=== PATIENT | female | born 1960 | race Caucasian/White ===

== ENCOUNTER 2016-11-23 01:22 | Emergency (ER) | payer BC ==
[2016-11-23] MEDS ORDERED: Famotidine IV* 10 MG/ML 2 ML (20 mg) IV SLOW PU ONE (01:25)
[2016-11-23] MEDS ORDERED: methylPREDNISolone 125 MG* 2 ML VIAL IV ONE (01:25)
[2016-11-23] MEDS ORDERED: NS 0.9% 1000 ML* 1,000 ML IV ONE (01:25)
--- NOTE | 2016-11-23 01:37 | ED ---
Sathya Rivas Benjamin, scribed for Renny Abarca MD on 11/23/16 at 0136 . Allergic Reaction/Systemic - HPI Summary HPI Summary: 56yo female BIBA for allergic reaction this evening around 6pm. Started developing redness, itchiness, tingling/swelling in hand, mild dyspnea, and burning in lips. Pt also noted her throat swelling en route. Pt took 50mg of Benadryl at home and was given 0.3 epi en route. Pt had shellfish for dinner but doesnt have known allergy to it. Slightly allergic to wheat and dairy but denies ingestion tonight. - History of Current Complaint Chief Complaint: EDAllergicReaction Time Seen by Provider: 11/23/16 01:24 Hx Obtained From: Patient Onset/Duration: Sudden Onset, Started hours ago Timing: Constant Severity Initially: Mild Severity Currently: Mild Pain Intensity: 0 Location: Diffuse Character: Swelling Aggravating Factor(s): Nothing Alleviating Factor(s): Nothing Associated Signs And Symptoms: Positive: Difficulty Breathing, Throat Tightening - Allergies/Home Medications Allergies/Adverse Reactions: Allergies Allergy/AdvReac Type Severity Reaction Status Date / Time DAIRY Allergy Hives Uncoded 11/23/16 02:21 WHEAT Allergy Hives Uncoded 11/23/16 02:21 PMH/Surg Hx/FS Hx/Imm Hx Endocrine/Hematology History: Denies: Hx Diabetes Cardiovascular History: Denies: Hx Hypertension, Hx Pacemaker/ICD Respiratory History: Denies: Hx Asthma History: Denies: Hx Renal Disease Musculoskeletal History: Denies: Hx Osteoporosis Sensory History: Reports: Hx Contacts or Glasses - GLASSES Denies: Hx Hearing Aid Opthamlomology History: Reports: Hx Contacts or Glasses - GLASSES Psychiatric History: Denies: Hx Panic Disorder - Cancer History Hx Chemotherapy: No Hx Radiation Therapy: No - Surgical History Surgery Procedure, Year, and Place: LEFT WRIST - GANGLION CYST;. BILAT VARICOSE [place] OCTOBER AND DECEMBER 2015; Hx Anesthesia Reactions: No Infectious Disease History: No Infectious Disease History: Denies: Traveled Outside the [place] in Last 30 Days - Social History Alcohol Use: Occasionally Substance Use Type: Reports: None Smoking Status (MU): Never Smoked Tobacco Review of Systems Constitutional: Negative Eyes: Negative Positive: Other - throat tightening; burning sensations in lips Cardiovascular: Negative Respiratory: Negative Gastrointestinal: Negative Genitourinary: Negative Musculoskeletal: Negative Positive: Rash, Other - redness in skin; itchiness Neurological: Other - tingling and burning sensations in hands Psychological: Normal All Other Systems Reviewed And Are Negative: Yes Physical Exam Triage Information Reviewed: Yes Vital Signs On Initial Exam: Initial Vitals Temp Pulse Resp BP Pulse Ox 99.0 F 81 18 119/83 96 11/23/16 01:23 11/23/16 01:23 11/23/16 01:23 11/23/16 01:11/23/16 01:23 Vital Signs Reviewed: Yes Appearance: Positive: Well-Appearing, No Pain Distress Skin: Positive: Warm, Other - patchy maculae erythematous rash Head/Face: Positive: Normal Head/Face Inspection Eyes: Positive: CARSON ENT: Positive: Hearing grossly normal Neck: Positive: Supple Respiratory/Lung Sounds: Positive: Clear to Auscultation, Breath Sounds Present Cardiovascular: Positive: RRR Abdomen Description: Positive: Nontender, Soft Bowel Sounds: Positive: Present Musculoskeletal: Positive: Strength/ROM Intact Neurological: Positive: Alert, Oriented to Person Place, Time Psychiatric: Positive: Affect/Mood Appropriate Diagnostics - Vital Signs Vital Signs Temp Pulse Resp BP Pulse Ox 11/23/16 01:23 99.0 F 81 18 119/83 96 - Laboratory Lab Statement: Any lab studies that have been ordered have been reviewed, and results considered in the medical decision making process. Re-Evaluation - Re-Evaluation First Eval Change: Improved Allergic Reaction Course/Dx - Diagnoses Provider Diagnoses: Allergic reaction Discharge - Discharge Plan Condition: Stable Disposition: HOME Prescriptions: diPHENhydraMINE PO* [Benadryl PO 25 MG TAB*] 25 mg PO Q6H #20 tab predniSONE TAB* [Deltasone TAB*] 40 mg PO DAILY #8 tab Patient Education Materials: General Allergic Reaction (ED) Referrals: Andree Horowitz NP [Primary Care Provider] - Gracie Brown MD [Medical Doctor] - The documentation as recorded by the Sathya north Benjamin accurately reflects the service I personally performed and the decisions made by me, Renny Abarca MD.
[2016-11-23 02:38] VITALS: BP 115/71
== END 2016-11-23 02:40 | disposition home or self-care (01) ==
LOC: ED 01:22
DX: T78.40XA Allergy, unspecified, initial encounter (principal); X58.XXXA Exposure to other specified factors, initial encounter; R21 Rash and other nonspecific skin eruption
CPT/HCPCS: 96374; 96375; 99283; J2930

== ENCOUNTER 2018-02-22 10:47 | Day surgery (SDC) | payer BC ==
[~2018-02-22 10:47] MED LIST: Acetaminophen TAB* 325 MG PO PRN; Buffered Lidocaine 0.9% SYRIN* 5 ML/SYR SYRINGE INTRADERM ONE; Naloxone* 0.4 MG/ML 1 ML VIAL IV PRN; Ondansetron INJ* 2 MG/ML VIAL IV PRN; fentaNYL* 50 MCG/ML 2 ML VIAL (100 MCG VIAL) IV PRN; oxyCODONE/Acetamin 5/325 MG* TAB PO PRN
[2018-02-22] MEDS ORDERED: fentaNYL* 50 MCG/ML 2 ML VIAL (100 MCG VIAL) ONE (13:12)
[2018-02-22] MEDS ORDERED: Dexamethasone IV* 4 MG/ML 1 ML (4 MG) ONE (13:12)
[2018-02-22] MEDS ORDERED: Propofol* 10 MG/ML 20 ML BTL IV PUSH ONE (13:12)
[2018-02-22] MEDS ORDERED: Lidocaine 2% PF * 5 ML VIAL ONE (13:12)
[2018-02-22] MEDS ORDERED: Ondansetron INJ* 2 MG/ML VIAL ONE (13:12)
[2018-02-22] MEDS ORDERED: Midazolam* 1 MG/ML 5 ML VIAL (5 MG) ONE (13:12)
[2018-02-22] MEDS ORDERED: ROPIVACAINE 5 MG/ML 30 ML BTL (0.5%) ONE (13:27)
--- NOTE | 2018-02-22 14:02 | OP ---
Operative Report - Blank - Operative Report Date of Operation: 02/22/18 Note: DATE OF OPERATION: 02/22/18 - [facility] DATE OF : 1960 SURGEON: Keny Dumont MD HIGH SCALER: MICHELLE Morton ANESTHESIOLOGIST: Dr. Mcclain. ANESTHESIA: Local MAC. PRE-OP DIAGNOSIS: Left carpal tunnel syndrome. POST-OP DIAGNOSIS: Left carpal tunnel syndrome. OPERATIVE PROCEDURE: Left open carpal tunnel release. INDICATIONS: Heaven has progressive left carpal tunnel syndrome. We talked about risks and benefits. She wanted to proceed. ESTIMATED BLOOD LOSS: 2 mL. COMPLICATIONS: None. FINDINGS: As expected. DESCRIPTION OF PROCEDURE: Heaven was seen in the preoperative holding area. The correct side, site and the procedure were identified. We came back to the operating room. I anesthetized the operative area with 0.25% plain Marcaine. The arm was prepped and draped in usual fashion. The arm was exsanguinated with the Esmarch and the tourniquet was inflated to 250 mmHg. I made a 2 to 3 cm longitudinal incision in the standard location for an open carpal tunnel release. Dissection was carried down through the subcutaneous tissue and palmar fascia. Transverse carpal ligament was released off the radial aspect of the hook of the hamate. The release was completed distally and proximally I released the fascia and subcutaneous tissue and retracted this volarly and ulnarly and then under direct visualization I released the remainder of the transverse carpal ligament and distal antebrachial fascia to level several centimeters proximal to the wrist flexion crease. The release at this point was complete. Everything was looking good with absolutely no compression on the nerve. I irrigated out the wound. Skin was closed with 4-0 nylon suture. Wounds were dressed appropriately and he was taken to recovery room in stable condition.
[2018-02-22 14:28] VITALS: BP 102/56
== END 2018-02-22 14:37 | disposition home or self-care (01) ==
LOC: OREAST 10:47
PROVIDERS: ATTEND Orthopaedic Surgery Hand Surgery
DX: G56.02 Carpal tunnel syndrome, left upper limb (principal); E66.01 Morbid (severe) obesity due to excess calories; F41.8 Other specified anxiety disorders; M25.50 Pain in unspecified joint
CPT/HCPCS: J1100; J2250; J2405; J2704; J2795; J3010

== ENCOUNTER 2018-06-18 10:09 | Day surgery (SDC) | payer BC ==
[~2018-06-18 10:09] MED LIST changes: -Acetaminophen TAB* 325 MG PO PRN; +Dexamethasone TAB* 4 MG PO ONE; +DiMENhydriNATE IV* 50 MG/ML VIAL IV PUSH PRN; +Famotidine IV* 10 MG/ML 2 ML (20 mg) IV ONE; +Lactated Ringers 1000 ML Bag* 1,000 ML IV SCH; +Morphine VIAL* 4 MG/ML VIAL (1 ml vial) IV PRN; -Ondansetron INJ* 2 MG/ML VIAL IV PRN; +Ondansetron INJ* 2 MG/ML VIAL ONE; +PROCHLORPERAZINE INJ 5 MG/ML 2 ML VIAL IV PRN; -fentaNYL* 50 MCG/ML 2 ML VIAL (100 MCG VIAL) IV PRN
[2018-06-18] MEDS ORDERED: Midazolam* 1 MG/ML 5 ML VIAL (5 MG) ONE (12:24)
[2018-06-18] MEDS ORDERED: KETAMINE HCL* 50 MG/ML 10 ML VIAL ONE (12:24)
[2018-06-18] MEDS ORDERED: fentaNYL* 50 MCG/ML 2 ML VIAL (100 MCG VIAL) ONE ×3 (12:24→16:13)
[2018-06-18] MEDS ORDERED: Ondansetron ODT TAB* 4 MG ONE (12:40)
[2018-06-18] MEDS ORDERED: Famotidine IV* 10 MG/ML 2 ML (20 mg) ONE (12:40)
[2018-06-18] MEDS ORDERED: Dexamethasone TAB* 4 MG ONE (12:40)
[2018-06-18] MEDS ORDERED: ceFAZolin 2 GM PREMIX in ORs 2 GM/50 ML BAG IVPB ONE (12:41)
[2018-06-18] MEDS ORDERED: Bupivacaine 0.25% SDV PF* 10 ML VIAL INJ ONE (13:49)
[2018-06-18] MEDS ORDERED: Atracurium* 10 MG/ML 10 ML VIAL ONE (14:14)
[2018-06-18] MEDS ORDERED: Glycopyrrolate IV* 0.2 MG/ML 1 ML VIAL ONE ×2 (14:30→14:46)
[2018-06-18] MEDS ORDERED: Propofol* 10 MG/ML 20 ML BTL ONE (14:46)
[2018-06-18] MEDS ORDERED: Ketorolac INJ* 30 MG/ML 1 ML VIAL ONE (14:46)
[2018-06-18] MEDS ORDERED: Lidocaine 2% PF * 5 ML VIAL ONE (14:46)
[2018-06-18] MEDS ORDERED: Lidocaine 2% PF* 10 ML AMP ONE (14:46)
[2018-06-18] MEDS ORDERED: EPHEDrine (Pressors)* 50 MG/ML VIAL ONE (14:47)
[2018-06-18] MEDS: fentaNYL* 50 MCG/ML 2 ML VIAL (100 MCG VIAL) IV PRN ×2 (16:14→16:18)
[2018-06-18] MEDS ORDERED: HYDROcodone/ACETAMIN 5-325 MG* 1 TAB ONE (16:28)
[2018-06-18 17:36] VITALS: BP 125/83
--- NOTE | 2018-06-19 02:39 | OP ---
DATE OF OPERATION: 06/18/18 - [facility] DATE OF : 62 SURGEON: Dr. Keny Dumont. PRINTING AGENT: MICHELLE Morton, and Andree Bryson, surgical resident. ANESTHESIOLOGIST: Dr. Hollins. ANESTHESIA: General. PRE-OP DIAGNOSES: 1. Right thumb carpometacarpal stage III osteoarthritis. 2. Right thumb metacarpophalangeal joint hyperextension laxity. 3. Right carpal tunnel syndrome. POST-OP DIAGNOSES: 1. Right thumb carpometacarpal stage III osteoarthritis. 2. Right thumb metacarpophalangeal joint hyperextension laxity. 3. Right carpal tunnel syndrome. OPERATIVE PROCEDURE: 1. Right thumb carpometacarpal arthroplasty with trapeziectomy. 2. Right distally based split flexor carpi radialis tendon transfer for thumb suspension and tendon interposition. 3. Right thumb metacarpophalangeal joint volar capsulodesis with volar plate advancement. 4. Right carpal tunnel release. INDICATIONS: Heaven is a 57-year-old. She has significant problems with the hand, but the worse is the thumb base coupled with carpal tunnel syndrome. She has a quite bit of MCP joint hyperextension, over 60 degrees. We had talked about her treatment options. She had wanted to proceed with surgery. She understands the risks and benefits. ESTIMATED BLOOD LOSS: 2 mL. COMPLICATIONS: None. FINDINGS: See above and below. DESCRIPTION OF PROCEDURE: Heaven was seen in the preoperative holding area. The correct side, site, and procedure were identified. We came back to the operating room where the arm was prepped and draped in the usual fashion. A time-out was performed. The arm was exsanguinated with the Esmarch and the tourniquet was inflated to 250 mmHg. I began by making a 2 to 3 cm incision in the proximal palm in the typical location for an open carpal tunnel release. Dissection was carried down through subcutaneous tissue and palmar fascia. The transverse carpal ligament was released off the radial aspect of the hook of the hamate. The release was completed distally and proximally until the entirety of the transverse carpal ligament and some of the distal antebrachial fascia had been released as well. Once I confirmed that there was absolutely no compression on the nerve, the wound was irrigated out and the skin was closed with 4-0 nylon suture. I then made a 2 to 3 cm incision over the dorsal radial thumb base. Dissection was carried down longitudinally to preserve the traversing sensory nerves. The radial artery remained right over the top of the trapezium. This was mobilized and the perforators were cauterized until the artery was able to be retracted out of the way. I then raised subperiosteal and capsular flaps to expose the trapezium. This was excised in piecemeal fashion until it had been removed in its entirety. The FCR tendon was preserved in the base of the wound. Once I had gotten all of the synovitis and bone out, I went ahead and created a bone tunnel from the dorsoradial metacarpal base exiting out the volar ulnar articular surface near the insertion of the FCR tendon. The scaphotrapezoid joint was inspected and the articular cartilage looked good here. I then made a 1 cm transverse incision over the distal FCR tendon just proximal to the wrist flexion crease. The tendon sheath was opened. A second transverse incision was made about 8 to 10 cm proximal to the first. The sheath was released along the entirety of the FCR tendon. The tendon was pulled up into the distal wound and split longitudinally and a 26-gauge wire was passed into the split of the tendon. A Angela clamp was passed from the proximal into the distal wound and then this was used to pull the wire under the skin to split the FCR tendon until half of the tendon was released at the musculotendinous junction. I then cleaned off any muscular remnants that remained and secured the end of the tendon with a 3-0 Ethibond suture. Two 26- gauge wires were used to pass the free end of the tendon down into the thumb base wound. The tendon was split all the way down to its insertion at the base of the second metacarpal. The free end of the tendon was then passed through the bone tunnel and moved back around the intact limb of the tendon. Tension was set and the tendon transfer was secured with 3 [id number] 3-0 Ethibond suture, the first sewing all 3 limbs of the tendon transfer together and the second 2 sewing intact limb to intact limb. The remainder of the tendon tail was rolled up as a ball and secured with a 3-0 Vicryl suture. This was then placed as an interposition at the site of the trapeziectomy. The wound had been copiously irrigated. I then closed the capsule with 3-0 Vicryl suture. The skin for all the wounds was closed with 4-0 nylon suture. The last thing to do was to address the MCP joint hyperextension laxity. I raised a V-shaped ulnarly-based flap to expose the digital nerves and the flexor tendon sheath. The A1 analisa was released. The tendon was retracted radially. I released the volar plate and created a distally based U-shaped flap. I then placed 2 mini Mitek suture anchors just proximal to the metacarpal head and then in the metacarpal neck. The 2-0 Ethibond sutures were used to advance the volar plate until I achieved 30 degrees of flexion at the MCP joint. This was done with a little whip stitch. Both sutures were tied off and I had a 23-degree flexion contracture of the MCP joint. I was very pleased with this, so I irrigated out the wound. The skin was closed with 4-0 nylon suture. Marcaine was infiltrated all about the operative area. The wounds were dressed with Xeroform, 4x4s, sterile Webril and then a thumb spica splint past the IP joint was placed from the MCP joint in 30 degrees of flexion. Tourniquet was deflated. The hand pinked up immediately. She was then taken to the recovery room in stable condition. [id number]/[facility] #: [id number] MTDD
== END 2018-06-18 17:39 | disposition home or self-care (01) ==
LOC: OR 10:09
PROVIDERS: ATTEND Orthopaedic Surgery Hand Surgery
DX: M18.11 Unilateral primary osteoarthritis of first carpometacarpal joint, right hand (principal); M24.841 Other specific joint derangements of right hand, not elsewhere classified; G56.01 Carpal tunnel syndrome, right upper limb; E78.5 Hyperlipidemia, unspecified
CPT/HCPCS: 88304; 88311; A9270-GY; C1713; J0690; J1885; J2001; J2250; J2704; J3010; J3490; J8540

== ENCOUNTER 2019-06-10 05:38 | Day surgery (SDC) | payer BC ==
[~2019-06-10 05:38] MED LIST changes: -Buffered Lidocaine 0.9% SYRIN* 5 ML/SYR SYRINGE INTRADERM ONE; +Buffered Lidocaine 1% SYRIN* 1 ML/SYRINGE INTRADERM ONE; -Dexamethasone TAB* 4 MG PO ONE; -DiMENhydriNATE IV* 50 MG/ML VIAL IV PUSH PRN; -Famotidine IV* 10 MG/ML 2 ML (20 mg) IV ONE; -Lactated Ringers 1000 ML Bag* 1,000 ML IV SCH; -Morphine VIAL* 4 MG/ML VIAL (1 ml vial) IV PRN; -Naloxone* 0.4 MG/ML 1 ML VIAL IV PRN; -Ondansetron INJ* 2 MG/ML VIAL ONE; -PROCHLORPERAZINE INJ 5 MG/ML 2 ML VIAL IV PRN; -oxyCODONE/Acetamin 5/325 MG* TAB PO PRN
[2019-06-10] MEDS ORDERED: Dexamethasone IV* 4 MG/ML 1 ML (4 MG) IV SLOW PU ONE (06:00)
[2019-06-10] MEDS ORDERED: Lactated Ringers 1000 ML Bag* 1,000 ML IV SCH (06:00)
[2019-06-10] MEDS ORDERED: Famotidine IV* 10 MG/ML 2 ML (20 mg) IV ONE (06:00)
[2019-06-10] MEDS ORDERED: Dexamethasone IV* 4 MG/ML 1 ML (4 MG) ONE (06:30)
[2019-06-10] MEDS ORDERED: Famotidine IV* 10 MG/ML 2 ML (20 mg) ONE (06:30)
[2019-06-10] MEDS ORDERED: Buffered Lidocaine 1% SYRIN* 1 ML/SYRINGE INTRADERM ONE (06:30)
[2019-06-10] MEDS ORDERED: ceFAZolin 2 GM PREMIX in ORs 2 GM/50 ML BAG ONE (06:30)
[2019-06-10] MEDS ORDERED: Naloxone* 0.4 MG/ML 1 ML VIAL IV PRN (07:07)
[2019-06-10] MEDS ORDERED: oxyCODONE/Acetamin 5/325 MG* TAB PO PRN (07:07)
[2019-06-10] MEDS ORDERED: DiMENhydriNATE IV* 50 MG/ML VIAL IV PUSH PRN (07:07)
[2019-06-10] MEDS ORDERED: Scopolamine 1.5 mg* PATCH TRANSDERM PRN (07:07)
[2019-06-10] MEDS ORDERED: Ondansetron INJ* 2 MG/ML VIAL IV PRN (07:07)
[2019-06-10] MEDS ORDERED: Midazolam* 1 MG/ML 5 ML VIAL (5 MG) ONE (07:11)
[2019-06-10] MEDS ORDERED: fentaNYL* 50 MCG/ML 5 ML VIAL (250 MCG VIAL) ONE (07:11)
[2019-06-10] MEDS ORDERED: Propofol* 10 MG/ML 20 ML BTL ONE ×2 (07:11→07:57)
[2019-06-10] MEDS ORDERED: Ondansetron INJ* 2 MG/ML VIAL ONE (07:11)
[2019-06-10] MEDS ORDERED: Ketorolac INJ* 30 MG/ML 1 ML VIAL ONE (07:11)
[2019-06-10] MEDS ORDERED: Lidocaine 2% PF * 5 ML VIAL ONE (07:11)
[2019-06-10] MEDS ORDERED: Bupivacaine 0.25% SDV PF* 10 ML VIAL INJ ONE (07:24)
[2019-06-10] MEDS ORDERED: EPHEDrine (Pressors)* 50 MG/ML VIAL ONE (07:57)
[2019-06-10] MEDS ORDERED: Atropine 1MG/ML INJ* 1 ML VIAL ONE (07:57)
[2019-06-10] MEDS ORDERED: fentaNYL* 50 MCG/ML 2 ML VIAL (100 MCG VIAL) ONE (09:57)
[2019-06-10] MEDS: fentaNYL* 50 MCG/ML 2 ML VIAL (100 MCG VIAL) IV PRN ×2 (09:58→10:58)
[2019-06-10] MEDS ORDERED: oxyCODONE/Acetamin 5/325 MG* TAB ONE (10:27)
--- NOTE | 2019-06-10 10:57 | OP ---
DATE OF OPERATION: 06/10/19 - LOCATED WITHIN [facility] DATE OF : 62 SURGEON: Keny Dumont MD SCREEN CLEANER: MICHELLE Morton. An school health assistant was needed for the procedure to aid in positioning of the arm, and retraction. ANESTHESIOLOGIST: Dr. Tiwari ANESTHESIA: General. PRE-OP DIAGNOSES: 1. Left stage III basal joint arthritis. 2. Left thumb metacarpophalangeal joint hyperextension laxity with volar plate attenuation. POST-OP DIAGNOSES: 1. Left stage III basal joint arthritis. 2. Left thumb metacarpophalangeal joint hyperextension laxity with volar plate attenuation. OPERATIVE PROCEDURES: 1. Left thumb carpometacarpal arthroplasty with trapeziectomy. 2. Left distally based split flexor carpi radialis tendon transfer for thumb suspension and tendon interposition. 3. Left thumb metacarpophalangeal joint volar capsulodesis. INDICATIONS: Ms. de leon is 58-year-old. She has aforementioned conditions. We had talked about risks, and benefits. She has had a similar surgery on the right. She wanted to proceed. ESTIMATED BLOOD LOSS: 2 mL. COMPLICATIONS: None. FINDINGS: See above and elbow. DESCRIPTION OF PROCEDURE: Ms. Stevenson was seen in the preoperative holding area. The correct side, site, and procedure were identified. We came back to the operating room. The arm was prepped and draped in usual fashion and the timeout was performed. The arm was exsanguinated with the Esmarch and the tourniquet was inflated to 250 mmHg. I first made a 2 to 3 cm longitudinal incision over the dorsal radial thumb metacarpal base dissection was carried down, the radial artery was mobilized, the subperiosteal and capsular flaps are raised to expose the trapezium. The trapezium was completely excised in piecemeal fashion. The FCR tendon was preserved in the base of the wound. Once, I had confirmed that the trapezium was fully excised, I went ahead and raised soft tissue flaps of the metacarpal base and used sequentially larger drill bits to create the bone tunnel from the dorsal radial thumb metacarpal base exiting out the volar ulnar articular surface. I then irrigated out the wound. I then turned my attention to the tendon transfer. I made a 1-cm incision over the distal FCR tendon just proximal to the wrist flexion crease the tendon sheath was released. She had a little bit of scar tissue from a prior volar wrist ganglion cyst excision. I made 2 additional 1 cm transverse incisions each about 7 or 8 cm proximal to the left. The sheath was released along the course of the tendon. The tendon was brought up into the wound distally and split longitudinally with a 15 blade and a 26-gauge wire was passed into the tendon split. The Angela clamp was then used to pull the wire up into the proximal wound releasing half the tendon at the musculotendinous junction. The tendon tilt was shuttled down into the thumb metacarpal base wound where it was passed through the bone tunnel. I then looped it back around the intact limb. All three limbs of the tendon transfer then secured with maximal tension. The distal stem with a [id number] Ethibond suture. The intact limb was then sewn to the intact limb with 2 additional figure- of-eight Ethibond sutures. The remainder of the tendon tail was rolled up as a ball and placed as an interposition between the base of the metacarpal and the distal pole of the scaphoid. The scaphotrapezoid joint had been examined and that looked good. The wound was irrigated out, the capsule was closed with 4-0 Vicryl suture. Skin was closed with 4-0 nylon suture. Lastly, I went ahead and made a V-shaped incision and raised a radially based flap over the volar MCP joint of the left thumb. The flap was sewn back. The A1 analisa was released. The tendon was retracted radially. The digital nerves were preserved throughout the procedure. The volar plate was raised as a distally based U-flap. Once I had fully mobilized the flap, I placed 2 DePuy mini Mitek suture anchors in the metacarpal neck just proximal to the condyles. These were sewn up into the volar plate and tied off, so that the MCP joint had a 30-degree block to flexion. Once this was all done, it was looking very nice. W irrigated out the wound. The skin was closed with 4-0 nylon suture. 0.25% Marcaine was infiltrated all about the area. The wound was redressed with Xeroform, 4x4s, sterile Webril and a thumb spica split with the IP joint included was applied with the MCP joint in 30 degrees of flexion. She was taken to the recovery room in stable condition. [id number]/[facility] #: [id number] RASHAWN
[2019-06-10 11:40] VITALS: BP 96/71
== END 2019-06-10 12:05 | disposition home or self-care (01) ==
LOC: OR 05:38
PROVIDERS: ATTEND Orthopaedic Surgery Hand Surgery
DX: M18.12 Unilateral primary osteoarthritis of first carpometacarpal joint, left hand (principal); M24.242 Disorder of ligament, left hand
CPT/HCPCS: A9270-GY; C1713; J0461; J0690; J1100; J1885; J2250; J2405; J2704; J3010; J3490

== ENCOUNTER 2019-09-19 05:43 | Day surgery (SDC) | payer BC ==
--- NOTE | 2019-09-16 13:21 | HP ---
PREOPERATIVE HISTORY AND PHYSICAL: DATE OF ADMISSION/SURGERY: 09/19/19 DATE OF OFFICE VISIT: 09/16/19 ATTENDING SURGEON: Dr. Floresita Lozano.* (DICTATED BY MICHELLE LO) PROCEDURE: Right knee arthroscopy, partial meniscectomy. CHIEF COMPLAINT: Right knee. HISTORY OF PRESENT ILLNESS: Heaven is a 58-year-old female who presents to the clinic for right knee pain due to a medial meniscus tear. She has failed conservative measures, therefore agreed to undergo a right knee arthroscopy with partial meniscectomy with Dr. Lozano on 09/19/19. PAST MEDICAL HISTORY: Dyslipidemia, plantar fasciitis, and anxiety. PAST SURGICAL HISTORY: Left wrist ganglion, vein tripping bilaterally, uterine ablation, right thumb and left thumb. The patient denies prior complications with anesthesia. MEDICATIONS: 1. Terbinafine 250 mg 1 by mouth daily. 2. Escitalopram 20 mg 1 daily. 3. Alprazolam 0.25 mg 1 up to 3 times a day. 4. Tuna omega 2 daily. 5. Ferrofood 1 daily. 6. Thyrotropin 1/4 tab daily. 7. Catalyn, take 6 daily. 8. 3 tabs daily. 9. Magnesium lactate 3 caps daily. 10. DaVinci B12 one daily. 11. Vitamin D3 5000 units once a day. ALLERGIES: No known drug allergies. FAMILY HISTORY: Positive for hypertension and COPD. Denies family history of DVT or PE. SOCIAL HISTORY: She is . She is a homemaker. She reports occasional alcohol consumption about 2 to 3 drinks a week. She denies tobacco use. She denies illegal drug use. REVIEW OF SYSTEMS: A 14-point review of systems was reviewed with the patient. Positive for current complaint, otherwise negative. Denies fevers, chills, chest pain, shortness of breath, history of bleeding disorder, history of DVT or PE. Denies history of MRSA. No history of hepatitis C or HIV. PHYSICAL EXAMINATION GENERAL: A 58-year-old, well-developed, well-nourished female, in no acute distress. VITAL SIGNS: Height 64, pulse 68, blood pressure 110/68, respiratory rate 18. Pain level 4. HEENT: Normocephalic, atraumatic. PERRL. Throat clear. NECK: Supple. PULMONARY: Lungs are clear to auscultation bilaterally. No wheezing, rhonchi, or rales. CARDIAC: Regular rate and rhythm. S1, S2. No murmurs, gallops, or rubs. No edema. ABDOMEN: Positive bowel sounds, soft, and nontender. NEUROLOGIC: Alert and oriented x3. Cranial nerves grossly intact. MUSCULOSKELETAL: Right lower extremity: Skin is intact. No abrasions or open wounds. No palpable masses or lymph nodes. Moderate effusion and tenderness over the medial joint line. Range of motion 5 to 125. Stable to varus and valgus stress. Stable Rosas with guarding. Negative posterior drawer. Positive Rosemarie. Calf soft and nontender. +5/5 strength ankle dorsiflexion and plantarflexion. +2 DP pulses. Sensation intact to light touch distally. DIAGNOSTIC STUDIES: MRI of the right knee from 08/15/19 reveals a medial meniscus tear and an ACL tear. ASSESSMENT AND PLAN: The patient is scheduled to undergo a right knee arthroscopy, partial meniscectomy on 09/19/[address] Lozano for treatment of a right knee medial meniscus tear. She will follow up 10 to 14 days postop for followup and suture removal. Percocet will be used for postop pain management. MICHELLE LO [id number]/[facility] #: [id number] MTDD
[2019-09-19] MEDS ORDERED: Acetaminophen TAB* 325 MG PO ONE (06:00)
[2019-09-19] MEDS ORDERED: Lactated Ringers 1000 ML Bag* 1,000 ML IV SCH (06:00)
[2019-09-19] MEDS ORDERED: ceFAZolin 2 GM PREMIX in ORs 2 GM/50 ML BAG ONE (06:51)
[2019-09-19] MEDS ORDERED: Acetaminophen TAB* 325 MG ONE (06:51)
[2019-09-19] MEDS ORDERED: Midazolam* 1 MG/ML 2 ML VIAL (2 MG) ONE (07:13)
[2019-09-19] MEDS ORDERED: fentaNYL* 50 MCG/ML 2 ML VIAL (100 MCG VIAL) ONE ×2 (07:13)
[2019-09-19] MEDS ORDERED: Lidocaine 2% PF * 5 ML VIAL ONE (07:15)
[2019-09-19] MEDS ORDERED: Buffered Lidocaine 1% SYRIN* 1 ML/SYRINGE INTRADERM ONE (07:15)
[2019-09-19] MEDS ORDERED: Propofol* 500 MG/50 ML BTL ONE (07:15)
[2019-09-19] MEDS ORDERED: ROPIVACAINE 5 MG/ML 30 ML BTL (0.5%) ONE (07:26)
[2019-09-19] MEDS ORDERED: methylPREDNISolone ACETATE 80* 80 MG/ML 1 ML VIAL ONE (07:26)
[2019-09-19] MEDS ORDERED: EPINEPHRINE 1 MG/ML 1 ML VIAL ONE (07:26)
[2019-09-19] MEDS ORDERED: EPHEDrine (Pressors)* 50 MG/ML VIAL ONE (08:01)
[2019-09-19] MEDS ORDERED: HYDROmorphone INJ1* 1 MG/ML SYRINGE IV PRN (09:00)
[2019-09-19] MEDS ORDERED: oxyCODONE TAB* 5 MG TAB PO PRN (09:00)
[2019-09-19] MEDS ORDERED: diPHENhydraMINE IV* 50 MG/ML 1 ml VIAL (BENADRYL) IV PRN (09:00)
[2019-09-19] MEDS ORDERED: Naloxone* 0.4 MG/ML 1 ML VIAL IV PRN (09:00)
[2019-09-19 11:34] VITALS: BP 144/84
--- NOTE | 2019-09-20 09:00 | OP ---
DATE OF OPERATION: 09/19/19 [facility] DATE OF : 62 SURGEON: Floresita Lozano MD. MEDICAL MALPRACTICE PARALEGAL: MICHELLE Forrester. Mr. Harvey did help throughout the procedure with preparation of the leg, wound retraction, manipulation of the knee, and wound closure. ANESTHESIOLOGIST: Dr. Mendoza. ANESTHESIA: Spinal. PRE-OP DIAGNOSES: 1. Right knee medial meniscal tear. 2. Mrzz-vm-jvethmoj osteoarthritis. POST-OP DIAGNOSES: Right knee medial meniscal tear, lateral meniscal tear, anterior synovitis, ybefxtmg-rx-bumytc osteoarthritis. OPERATIVE PROCEDURE: Right knee arthroscopy with partial medial and lateral meniscectomies, anterior synovectomy, patellofemoral chondroplasty. ESTIMATED BLOOD LOSS: Less than 25 cc. COMPLICATIONS: None. SPECIMENS: None. BRIEF HISTORY/INDICATIONS: Ms. Stevenson is a 58-year-old female with 3 months of acute increase in right knee pain and mechanical symptoms. MRI confirmed a significant medial meniscal tear. The patient failed conservative treatment and wished to proceed with right knee arthroscopy and partial meniscectomy. Informed consent was obtained from the patient. She understood the risks of surgery included, but were not limited to, bleeding, infection, damage to nearby structures, continued pain, need for further surgery, retear of the meniscus, progression of arthritis, stroke, heart attack, blood clot, and . She wished to proceed. INTRAOPERATIVE FINDINGS: Intraoperatively, the patient was noted to have a large linear tear in the posterior 30% of the medial meniscus involving the white red zone. She had a radial tear along the anterolateral meniscus. She had a large amount of anterior synovitis. She had grade 3 and 4 Outerbridge cartilage changes in the medial patellofemoral compartments. Patellofemoral compartment had frayed and flapped cartilage with exposed subchondral bone. Near partial tear of the ACL. DESCRIPTION OF PROCEDURE: Ms. Stevenson was identified in the preanesthesia unit. Her right lower extremity was marked as the correct operative site. Informed consent was signed and placed in the chart. The patient was taken to the operating room and placed under anesthesia without difficulty. Her right lower extremity was prepped and draped in the usual sterile fashion. Preop time-out was made to correctly identify the patient side and site. Appropriate perioperative antibiotics were given within 1 hour of incision. A 0.5 cm lateral portal incision was made with a 10-blade and carried down to the capsule. The trocar was introduced. As soon as the light and water sources were turned on, there was immediate visualization of the suprapatellar pouch. A tour of the knee joint was performed. Suprapatellar pouch showed no obvious abnormality. Patellofemoral compartment showed grade 3 and 4 Outerbridge cartilage changes. There was frayed and and flapped cartilage with exposed subchondral bone along the medial and lateral patellar facet. Medial gutter showed no loose body or plica. The medial compartment of the knee showed a mildly anteriorly displaced posteromedial meniscus tear. This was a linear tear involving the white red zone. The medial femoral condyle had grade 3 and 4 Outerbridge cartilage changes. The ACL had obvious laxity and a high-grade partial tear involving 80% . PCL appeared to be intact. The knee was placed in a [id number]-eeqn position. Lateral compartment showed large anterior radial tear in the lateral meniscus, minimal degenerative changes. The lateral gutters showed no plica or loose body. A medial portal incision was made under visualization. Probe was introduced and a second tour of the knee joint was performed. Shaver and radiofrequency ablation wand were used to perform anterior synovectomy. Visualization was much improved. Probing of the ACL showed about 20% of the ACL remaining intact with significant Laxity. Radio-frequency ablation wand was used to smooth any cartilage flapping or fraying along the patellofemoral compartment, mainly the patellar medial and lateral facet cartilage. This was done in a conservative fashion. Attention was next turned to the medial meniscus. There was a longitudinal complex type tear in the posterior 50% of the medial meniscus. This was mainly in the white red zone. Straight biter and shaver were used to excise the meniscus tear. A smooth border of the meniscus was obtained. Further probing of the medial meniscus showed no additional tears. Radiofrequency ablation wand was used to further smooth the edge of the medial meniscus. The knee was placed in the [id number]-fl-ccck position. There was displaced anterior radial type tear of the lateral meniscus. Shaver and radiofrequency ablation wand were used to perform partial lateral meniscectomy. The tear was carefully excised. Further probing of the lateral meniscus showed no additional tears. The knee was copiously irrigated with sterile saline. All instruments were removed. Incisions were closed using 3-0 nylon suture. Incisions were covered with Xeroform, 4x4s, and Webril. Chandler wrap and cold pack were placed over this. The patient's anesthesia was reversed without difficulty. She was taken to the PACU in stable condition. Intended weight bearing will be weight bearing as tolerated. Intended DVT prophylaxis will be aspirin. [id number] #: [id number] MTDD
== END 2019-09-19 12:30 | disposition home or self-care (01) ==
LOC: OR 05:43
PROVIDERS: ATTEND Orthopaedic Surgery Adult Reconstructive Orthopaedic Surgery
DX: S83.241A Other tear of medial meniscus, current injury, right knee, initial encounter (principal); S83.281A Other tear of lateral meniscus, current injury, right knee, initial encounter; X58.XXXA Exposure to other specified factors, initial encounter; Y92.9 Unspecified place or not applicable; M17.11 Unilateral primary osteoarthritis, right knee; M65.861 Other synovitis and tenosynovitis, right lower leg; E78.5 Hyperlipidemia, unspecified; M72.2 Plantar fascial fibromatosis; F41.9 Anxiety disorder, unspecified
CPT/HCPCS: A9270-GY; J0690; J1040; J2250; J2704; J2795; J3010